=== PATIENT | male | born 1980 | race Caucasian/White ===

== ENCOUNTER 2018-05-06 12:01 | Emergency (ER) | payer OTHER ==
[~2018-05-06] VITALS: Ht 172.7 cm; Wt 72.6 kg
[2018-05-06] MEDS ORDERED: BACTRIM DS TAB1 EACH PO (12:23)
[2018-05-06 12:30] VITALS: BP 118/87
== END 2018-05-06 12:31 | disposition home or self-care (01) ==
LOC: M.ERS 12:01
DX: L03.317 Cellulitis of buttock (principal)